=== PATIENT | female | born 1950 | race Caucasian/White ===

== ENCOUNTER → 2018-06-29 16:23 | Outpatient (REF) | payer MEDICARE, SELFPAY | LOC: LAB 16:23 | PROVIDERS: Visit Provider Internal Medicine | DX: N39.0 Urinary tract infection, site not specified (principal) | CPT/HCPCS: 87077; 87086; 87186 ==

== ENCOUNTER → 2018-09-02 11:24 | Outpatient (CLI) | payer MEDICARE, SELFPAY ==
[2018-09-02 11:47] LABS: Bacteria Urine None Seen; RBC Urine None Seen (0-5/HPF)
[2018-09-02 13:55] LABS: Appearance Urine UA CLEAR; Bilirubin Urine UA NEGATIVE (NEGATIVE); Color Urine UA YELLOW; Glucose Urine UA NEGATIVE (Negative); Ketones Urine UA NEGATIVE (NEGATIVE); Leukocyte Esterase Urine UA TRACE (NEGATIVE); Nitrite Urine UA NEGATIVE (Negative); Occult Blood Urine UA NEGATIVE (Negative); Protein Urine UA NEGATIVE (Negative); Specific Gravity Urine UA <=1.005 (1.000-1.035); Urobilinogen Urine UA 0.2 E.U./dL (0.2); pH Urine UA 6.5 (4.5-8.0)
[2018-09-02 14:46] LABS: Culture Indicated Urine Cult Not Indicated; Squamous Epithelial Cell Urine 0-1 /HPF (0-5/HPF); WBC Urine 0-1/HPF (0-5/HPF)
== END ==
PROVIDERS: PCP Internal Medicine; Visit Provider Internal Medicine
DX: R30.0 Dysuria (principal)
CPT/HCPCS: 81001

== ENCOUNTER → 2019-04-25 11:41 | Outpatient (CLI) | payer MEDICARE, SELFPAY ==
[2019-04-25 12:39] LABS: Add Manual Diff / Slide Review NO; Basophils Absolute Auto 0 /uL (0-100); Basophils Percent Auto 0.3 % (0-2); Eosinophils Absolute Auto 0 /uL (0-450); Eosinophils Percent Auto 1.1 % (2-4); Hematocrit 41.2 % (36-46); Hemoglobin 14.3 g/dL (12.0-16.0); Lymphocytes Absolute Auto 1400 /uL (1100-4500); Lymphocytes Percent Auto 31.9 % (25-40); Mean Corpuscular HGB Conc 34.8 % (30-36); Mean Corpuscular Hemoglobin 31.7 PG (26-34); Mean Corpuscular Volume 91.1 fL (80-100); Monocytes Absolute Auto 600 /uL (0-900); Monocytes Percent Auto 13.6 % (3-14); Neutrophils Absolute Auto 2300 /uL (1500-7000); Neutrophils Percent Auto 53.1 % (50-75); Platelet Count 231 X10^3/uL (150-400); Red Blood Cell Count 4.53 X10^6/uL (4.0-5.2); Red Cell Distribution Width 13.8 % (11.6-14.8); White Blood Cell Count 4.3 X10^3/uL (4.5-11.0)
[2019-04-25 12:55] LABS: Erythrocyte Sedimentation Rate 5 MM/HR (0-20)
[2019-04-25 13:00] LABS: Alanine Aminotransferase 45 IU/L (<35); Albumin 4.6 g/dL (3.5-5.0); Albumin Globulin Ratio 1.9 (1.0-2.8); Alkaline Phosphatase 61 U/L (38-126); Aspartate Aminotransferase 48 IU/L (14-36); BUN Creatinine Ratio 26.7 (6-22); Bilirubin Total 0.5 mg/dL (0.2-1.3); Blood Urea Nitrogen 16 mg/dL (7-17); Calcium 9.7 mg/dL (8.4-10.2); Carbon Dioxide 29 mmol/L (22-32); Chloride 105 mmol/L (98-107); Estimated Glomerular Filt Rate > 60.0 mL/min (>60); Globulin 2.4 g/dL (1.7-4.1); Glucose 105 mg/dL (80-110); HEMOLYSIS < 15 (0-50); Potassium 4.8 mmol/L (3.4-5.1); Sodium 143 mmol/L (137-145)
[2019-04-25 13:03] LABS: C-Reactive Protein Quant < 0.5 mg/dL (<1.0)
[2019-04-30 07:55] LABS: ANA Screen, IFA NEGATIVE (NEGATIVE)
== END ==
PROVIDERS: PCP Internal Medicine; Visit Provider Internal Medicine
DX: R53.83 Other fatigue (principal); M62.81 Muscle weakness (generalized); M79.10 Myalgia, unspecified site
CPT/HCPCS: 36415; 80053; 84443; 85025; 85651; 86038; 86140

== ENCOUNTER → 2019-11-20 13:14 | Outpatient (CLI) | payer MEDICARE, SELFPAY ==
--- NOTE | 2019-11-20 | DI.RAD.S_ITS ---
PROCEDURE: XR LUMBAR SPINE 2-3V INDICATIONS: Low back pain TECHNIQUE: 3 views of the lumbar spine were acquired. COMPARISON: None. FINDINGS: Bones: No fracture. Multilevel degenerative endplate sclerosis and spurring. Diffuse facet arthropathy. Lumbar levoscoliosis. Posterior spinal fixation hardware with paraspinal rods pedicle screw. There is also interbody cage graft at L5-S1. Hardware appears intact. Expected postop alignment. Presumed posterior element stabilization device. Grade 1 retrolisthesis of L2 on L3, L3 on L4. Severe narrowing of the L2-L3 and L3-L4 disc spaces. Soft tissues: Overlying bowel gas pattern is normal. No suspicious soft tissue calcifications. IMPRESSION: Lumbar levoscoliosis and severe multilevel spondylosis, and facet arthropathy Postsurgical changes as above L5-S1. Dictated by: Fredy Flannery M.D. on 11/20/2019 at 16:48 Approved by: Fredy Flannery M.D. on 11/20/2019 at 16:50
--- NOTE | 2019-11-20 | DI.RAD.S_ITS ---
PROCEDURE: XR HIP W PEL IF DONE LT MIN 4V INDICATIONS: bilateral hip pain TECHNIQUE: AP pelvis with lateral view(s) of the 3 hip(s). COMPARISON: None. FINDINGS: Bones: No fractures or dislocations. Pelvic ring appears intact. No suspicious bony lesions. Lower lumbar spondylosis, and L5-S1 surgical fixation. Moderate bilateral osteoarthritis. Calcific densities projecting at the right greater trochanter Soft tissues: The visualized bowel gas pattern is normal. No suspicious soft tissue calcifications. IMPRESSION: Moderate bilateral hip osteoarthritis Lower lumbar spondylosis and postsurgical changes. Dictated by: Fredy Flannery M.D. on 11/20/2019 at 15:27 Approved by: Fredy Flannery M.D. on 11/20/2019 at 15:29
== END ==
PROVIDERS: PCP Internal Medicine; Referring Provider Internal Medicine; Visit Provider Internal Medicine
DX: M54.5 Low back pain (principal); M47.816 Spondylosis without myelopathy or radiculopathy, lumbar region; M25.551 Pain in right hip; M25.552 Pain in left hip; M16.0 Bilateral primary osteoarthritis of hip; M41.86 Other forms of scoliosis, lumbar region; Z78.0 Asymptomatic menopausal state; Z90.722 Acquired absence of ovaries, bilateral; Z85.3 Personal history of malignant neoplasm of breast; Z98.1 Arthrodesis status
CPT/HCPCS: 72100; 73522; 77080

== ENCOUNTER → 2020-05-15 11:58 | Outpatient (CLI) | payer MEDICARE, SELFPAY ==
[2020-05-15] MEDS: COVID-19 VACC #1, MRNA(MOD) 100 MCG/0.5 ML VIAL IM (12:14)
== END ==
PROVIDERS: PCP Internal Medicine; Visit Provider Internal Medicine
DX: Z23 Encounter for immunization (principal)
CPT/HCPCS: 0011A; 91301

== ENCOUNTER → 2020-06-12 12:00 | Outpatient (CLI) | payer MEDICARE, SELFPAY ==
[2020-06-12] MEDS: COVID-19 VACC #2, MRNA(MOD) 100 MCG/0.5 ML VIAL IM (12:11)
== END ==
PROVIDERS: PCP Internal Medicine; Visit Provider Internal Medicine
DX: Z23 Encounter for immunization (principal)
CPT/HCPCS: 0012A; 91301

== ENCOUNTER → 2020-06-25 08:00 | Outpatient (CLI) | payer OTHER, SELFPAY ==
[2020-06-25 09:32] LABS: Alanine Aminotransferase 36 IU/L (<35); Albumin 4.3 g/dL (3.5-5.0); Albumin Globulin Ratio 1.7 (1.0-2.8); Alkaline Phosphatase 81 U/L (38-126); Aspartate Aminotransferase 32 IU/L (14-36); BUN Creatinine Ratio 30.9 (6-22); Bilirubin Total 0.4 mg/dL (0.2-1.3); Blood Urea Nitrogen 17 mg/dL (7-17); Calcium 9.1 mg/dL (8.4-10.2); Carbon Dioxide 32 mmol/L (22-32); Chloride 104 mmol/L (98-107); Cholesterol 186 mg/dL (140-199); Estimated Glomerular Filt Rate > 60.0 mL/min (>60); Globulin 2.6 g/dL (1.7-4.1); Glucose 105 mg/dL (80-110); HDL Cholesterol 58 mg/dL (40-60); HEMOLYSIS < 15 (0-50); LDL Cholesterol Calculated 97 mg/dL (<100); Potassium 3.7 mmol/L (3.4-5.1); Sodium 139 mmol/L (137-145); Total Protein 6.9 g/dL (6.3-8.2); Triglycerides 154 mg/dL (35-150)
== END ==
PROVIDERS: PCP Internal Medicine; Referring Provider Internal Medicine; Visit Provider Internal Medicine
DX: E78.5 Hyperlipidemia, unspecified (principal); I10 Essential (primary) hypertension
CPT/HCPCS: 36415; 80053; 80061

== ENCOUNTER → 2020-09-08 10:04 | Outpatient (CLI) | payer OTHER, SELFPAY | PROVIDERS: PCP Internal Medicine; Referring Provider Internal Medicine; Visit Provider Internal Medicine | DX: M54.40 Lumbago with sciatica, unspecified side (principal) ==

== ENCOUNTER → 2020-09-21 12:18 | Outpatient (CLI) | payer OTHER, SELFPAY ==
--- NOTE | 2020-09-21 12:19 | DI.MRI.S_ITS ---
PROCEDURE: MR LUMBAR SPINE WO CON INDICATIONS: Low back pain TECHNIQUE: Noncontrast sagittal T1 spin echo and T2 fast echo, sagittal STIR, axial T1 and T2 fast spin echo through the lumbar spine. In cases with scoliosis, additional coronal T2 fast spin echo may be performed. COMPARISON: [facility], CR, XR LUMBAR SPINE 2-3V, 11/20/2019, 13:17. FINDINGS: Image quality: Excellent. Postsurgical changes of posterior fixation at L5-S1 by means of interbody device with left lateral pedicle screws and rods. There is also an interspinous fusion device. Mild levoscoliosis is similar. Grade 1 retrolisthesis of L2 on L3 and of L3 on L4, similar to the comparison radiographs. Vertebral body heights maintained. Mild marrow edema at the opposing L3-L4 endplates on the right. No significant marrow edema otherwise. There is no suspicious focal marrow signal abnormality. Abnormally low position of the conus, terminating at the mid to inferior L2 level. Normal appearance of the conus otherwise. Prevertebral and paraspinous soft tissues are within normal limits. Small left renal cyst. T12-L1: No spinal canal or neural foraminal stenosis. L1-L2: No spinal canal or neural foraminal stenosis. L2-L3: Diffuse disc bulge flattens the ventral thecal sac. Disc material abuts and may slightly displace the descending L3 nerve roots within both subarticular zones. Foraminal components of the disc bulge combine with facet hypertrophy to produce mild bilateral neural foraminal stenosis. Small facet effusions are present. L3-L4: Retrolisthesis of L3 on L4 combines with a circumferential disc bulge and a superimposed broad-based posterior disc protrusion to flatten and indent the ventral thecal sac. Buckling of the ligamentum flavum and bulky facet hypertrophy further contribute to overall severe spinal canal stenosis. There is near complete effacement of CSF within the thecal sac at this level, producing crowding of the traversing nerve roots with some laxity of the nerve roots above this level suggesting an element of compression/impingement. Foraminal components of the disc bulge contribute to mild bilateral neural foraminal narrowing in conjunction with facet hypertrophy. Small facet effusions are present. L4-L5: Severe spinal canal stenosis due to a broad-based posterior disc protrusion buckling of the ligamentum flavum, and facet hypertrophy. There is complete effacement of CSF and crowding of the traversing nerve roots with laxity of the nerve roots above this level. Foraminal components of the disc bulge combine with facet hypertrophy to produce mild bilateral neural foraminal narrowing. Moderate-sized facet effusions are present. L5-S1: Diffuse disc bulge and posterior osteophytic ridging flatten the ventral thecal sac with mild displacement of the descending S1 nerve roots. Mild bilateral neural foraminal narrowing. IMPRESSION: Severe spinal canal stenosis at L3-L4 and L4-L5. Additional milder degenerative changes at the remaining levels. Postsurgical changes of L4-L5 posterior fixation. Slightly low position of the conus. Dictated by: Jerzy Velez M.D. on 09/23/2020 at 9:55 Approved by: Jerzy Velez M.D. on 09/23/2020 at 10:13
== END ==
PROVIDERS: PCP Internal Medicine; Referring Provider Internal Medicine; Visit Provider Internal Medicine
DX: M54.40 Lumbago with sciatica, unspecified side (principal)
CPT/HCPCS: 72148

== ENCOUNTER → 2021-12-16 10:06 | Outpatient (CLI) | payer OTHER, SELFPAY ==
[2021-12-16 12:20] LABS: COVID19 -Nasal RAPID Negative (Negative)
== END ==
PROVIDERS: PCP Internal Medicine; Visit Provider Surgery
DX: Z20.822 Contact with and (suspected) exposure to COVID-19 (principal); Z01.812 Encounter for preprocedural laboratory examination
CPT/HCPCS: 87635; C9803

== ENCOUNTER 2021-12-17 10:07 | Day surgery (SDC) | payer OTHER, SELFPAY ==
--- NOTE | 2021-12-17 | PATH_ITS ---
[facility] Accession Number: [id number] . 01 Material submitted: . PART A: colon - HEPATIC FLEXURE COLON POLYPS X2 PART B: rectum - RECTAL POLYPS X2 . 01 Clinical history: . DX COLONOSCOPY . 01 Diagnosis: A. Hepatic Flexure, Polyps x2, Biopsies: Serrated lesion, favor sessile serrated adenoma in one of three fragments. Benign lymphoid aggregate, two fragments. Additional levels were examined. . B. Rectum, Polyps x2, Biopsies: Hyperplastic polyp, one fragment. Remaining fragments are vegetable material. MRV 12/23/2021 1452 Local . 01 Electronically signed: . Shireen Sifuentes MD, Pathologist NPI- [id number] . 01 Gross description: . Part A: HEPATIC FLEXURE COLON POLYPS X2: Received in formalin are 3 fragment(s) of [place], soft tissue measuring 0.8 x 0.2 x 0.1 cm to 0.2 x 0.1 x 0.1 cm submitted entirely in 1 cassette(s) Part B: RECTAL POLYPS X2: Received in formalin are multiple fragment(s) of [place], soft tissue measuring 2.7 x 1.0 x 0.1 cm in aggregate submitted entirely in 1 cassette(s) /CPE 12/18/2021 0658 Local . 01 Pathologist provided ICD-10: D12.3, K62.1 . 01 CPT . 684738, 090787 Specimen Comment: A courtesy copy of this report has been sent to [phone] Performed at: 01 [facility] [address] [place] [address] [address], [place], [place] [id number] MD Brock Green MD Phone: [phone]
[2021-12-17 10:30] VITALS: BP 146/86; PULSE 96; RESP 20; TEMP 36.9; O2SAT 99; BMI 25.7
[2021-12-17] MEDS: LACTATED RINGERS 1,000 ML 150 ML IV (10:39)
--- NOTE | 2021-12-17 12:00 | PM.HP.1 ---
History of Present Illness History of Present Illness Chief complaint: DX COLONOSCOPY Patient History Family & Social History Social History: household members spouse Tobacco & Substance use: Smoking Status Never smoker alcohol intake frequency a few times a month Substance Use Type does not use Meds Home Medications and Allergies Home Medications Medication Instructions Recorded Confirmed Type amlodipine 2.5 mg tablet 2.5 mg PO DAILY 10/26/19 12/17/21 History meloxicam 15 mg tablet 15 mg PO DAILY 10/26/19 12/17/21 History nortriptyline 50 mg capsule 50 mg PO DAILY 10/26/19 12/17/21 History Respironics DreamStation 03/26/21 03/26/21 History atorvastatin 40 mg tablet 40 mg PO DAILY 03/26/21 12/17/21 History gabapentin 300 mg capsule 300 mg PO .4 times daily 03/26/21 12/17/21 History lisinopril 30 mg tablet 40 mg PO DAILY 03/26/21 12/17/21 History metoprolol succinate 50 mg 50 mg PO DAILY 12/17/21 12/17/21 History tablet,extended release 24 hr Allergies Allergy/AdvReac Type Severity Reaction Status Date / Time Sulfa (Sulfonamide Allergy have Verified 03/26/21 09:42 Antibiotics) been told to avoid it since childhood morphine AdvReac Intermediate ITCHING Verified 12/17/21 10:27 Review of Systems Review of Systems Narrative: Negative Exam Vital Signs (past 8 hours): - 12/17/21 10:30 Temperature 98.5 F Pulse Rate 96 H Respiratory Rate 20 Blood Pressure 146/86 H Pulse Oximetry 99 Oxygen Delivery Method Room Air Oxygen Delivery Method Room Air Narrative Exam Narrative: Awake alert and oriented x3, pupils equal round reactive to light, oropharynx clear, heart regular rate and rhythm, lungs clear to auscultation bilaterally, abdomen nontender and nondistended, extremities without edema, no gross neurologic deficits noted Assessment & Plan Assessment & Plan narrative: Colon cancer screening for colonoscopy today Time Spent With Patient Critical Care time: I spent a total of [] minutes of critical care time on this patient's care today; this time is exclusive of procedural time.
--- NOTE | 2021-12-17 12:37 | PM.OP.COLON ---
Operative Date/Time/Diagnoses Date of procedure: 12/17/21 Procedure & Clinicians Study performed: Colonoscopy with snare polypectomy Indications: Colon cancer screening. Last colonoscopy was about 4 years ago. Personal history of colon polyps. Family history of colon cancer in a first-degree relative and second-degree relative. Procedure Notes Procedure in detail: Prior to the procedure, history and physical was performed, and patient medications and allergies were reviewed. Preprocedure nursing history and assessment was reviewed. Patient identification and proposed procedure were verified by the physician and nurse in the procedure room. The physical status of the patient was reassessed after the procedure. After informed consent was obtained including risks, benefits, and alternatives, the scope was passed under direct vision. Throughout the procedure, the patient's blood pressure, pulse, and oxygen saturations were monitored continuously. The colonoscope was introduced through the anus and advanced to the cecum as identified by the appendiceal orifice and ileocecal valve. The patient tolerated the procedure well. Bowel prep was deemed adequate to detect polyps greater than 5 mm. Perianal and digital rectal examinations were unremarkable. Retroflexion in the rectum was unrevealing. There was looping in the sigmoid colon. At the hepatic flexure, a 7 mm and 3 mm sessile polyp were removed using cold snare and were retrieved. At the rectum, a 4 mm and a 3 mm sessile polyp were removed using a cold snare and retrieved Impression: Four sessile polyps ranging in size from 3 mm to 7 mm removed from the rectum and hepatic flexure Looping in the sigmoid colon Complications: other (EBL minimal. No complications) Post-procedure Plan for aftercare: Follow-up pathology results Repeat colonoscopy at a date to be determined based on pathology results Resume home medications Resume previous diet Patient has a contact number available for emergencies. The signs and symptoms of potential delayed complications were discussed with the patient. Return to normal activities tomorrow. Written discharge instructions were provided to the patient. Discharge home with escort
[2021-12-17 12:40] VITALS: BP 109/75; PULSE 94; RESP 16; O2SAT 98
[2021-12-17 12:45] VITALS: BP 114/76; PULSE 96; RESP 14; O2SAT 100
[2021-12-17 12:51] VITALS: BP 164/94; PULSE 91; RESP 16; O2SAT 100
[2021-12-17 12:56] VITALS: BP 158/93; PULSE 88; RESP 13; O2SAT 99
[2021-12-17 13:01] VITALS: BP 144/88; PULSE 84; RESP 19; TEMP 36.4; O2SAT 99
== END 2021-12-17 13:10 | disposition home or self-care (01) ==
PROVIDERS: PCP Internal Medicine; Referring Provider Internal Medicine; Visit Provider Internal Medicine
PROC: 0DJD8ZZ Inspection of Lower Intestinal Tract, Via Natural or Artificial Opening Endoscopic (ICD-10-PCS; CPT 45378; principal; 2021-12-17 11:30)
DX: Z86.010 Personal history of colon polyps (principal); Z80.0 Family history of malignant neoplasm of digestive organs; Z12.11 Encounter for screening for malignant neoplasm of colon; D12.3 Benign neoplasm of transverse colon
CPT/HCPCS: 45385; J2704

== ENCOUNTER → 2022-04-15 09:12 | Outpatient (CLI) | payer OTHER, SELFPAY ==
--- NOTE | 2022-04-15 | DI.US.S_ITS ---
PROCEDURE: US CAROTID DOPPLER BI INDICATIONS: HYPERLIPIDEMIA TECHNIQUE: Color and pulse Doppler interrogation was performed of both carotid systems, with image documentation and velocity measurements. COMPARISON: None. FINDINGS: Stenosis calculations are based on SRU (Society of Radiologists in Ultrasound) criteria. Right side: Brachial blood pressure: 152/94 mm Hg. Common carotid artery peak systolic velocity: 63 cm/sec. Internal carotid artery peak systolic velocity: 58 cm/sec. Internal carotid artery end diastolic velocity: 22 cm/sec. External carotid artery peak systolic velocity: 86 cm/sec. ICA/CCA peak systolic ratio: 0.9 . Wang scale imaging description: Mild atheromatous plaque is present at the origin of the internal carotid artery. Percent internal carotid artery stenosis: Less than 50% stenosis. Vertebral artery: Flow direction is antegrade. Left side: Brachial blood pressure: 143/84 mm Hg. Common carotid artery peak systolic velocity: 66 cm/sec. Internal carotid artery peak systolic velocity: 62 cm/sec. Internal carotid artery end diastolic velocity: 26 cm/sec. External carotid artery peak systolic velocity: 67 cm/sec. ICA/CCA peak systolic ratio: 0.9 . Wang scale imaging description: Atheromatous plaque is present at the carotid bulb and the distal common carotid artery. Percent internal carotid artery stenosis: Less than 50% stenosis. Vertebral artery: Flow direction is antegrade. IMPRESSION: Less than 50% stenosis of the bilateral internal carotid arteries. Dictated by: Deandra Thompson M.D. on 04/15/2022 at 11:36 Approved by: Deandra Thompson M.D. on 04/15/2022 at 11:37
== END ==
PROVIDERS: PCP Internal Medicine; Referring Provider Internal Medicine; Visit Provider Internal Medicine
DX: I65.23 Occlusion and stenosis of bilateral carotid arteries (principal); E78.5 Hyperlipidemia, unspecified; Z13.820 Encounter for screening for osteoporosis; Z78.0 Asymptomatic menopausal state; Z82.49 Family history of ischemic heart disease and other diseases of the circulatory system; Z90.710 Acquired absence of both cervix and uterus
CPT/HCPCS: 77080; 93880

== ENCOUNTER 2022-05-07 19:17 | Emergency (ER) | payer MEDICARE, SELFPAY ==
[2022-05-07 19:27] VITALS: BP 141/94; PULSE 114; RESP 20; TEMP 36.9; O2SAT 98; BMI 27.1
--- NOTE | 2022-05-07 19:36 | DI.RAD.S_ITS ---
PROCEDURE: XR CHEST 1V INDICATIONS: chest pain TECHNIQUE: One view of the chest was acquired. COMPARISON: None. FINDINGS: Surgical changes and devices: Surgical clips are noted in the left axilla. Lungs and pleura: Lungs are clear. No pleural effusions or pneumothorax. Mediastinum: Aortic arch calcification is seen. Heart size is enlarged. Bones and chest wall: No suspicious bony lesions. Overlying soft tissues appear unremarkable. IMPRESSION: No acute cardiopulmonary pathology. Dictated by: Peter Diaz M.D. on 05/07/2022 at 20:14 Approved by: Peter Diaz M.D. on 05/07/2022 at 20:15
[2022-05-07 20:31] LABS: COVID-19 CEPHEID PCR (VTM/NP) POSITIVE (Negative)
[2022-05-07 20:32] VITALS: BP 160/85; PULSE 101; RESP 20; O2SAT 98
[2022-05-07 20:36] LABS: Add Manual Diff / Slide Review NO; Basophils Absolute Auto 0 /uL (0-100); Basophils Percent Auto 0.4 % (0-2); Eosinophils Absolute Auto 100 /uL (0-450); Eosinophils Percent Auto 1.1 % (2-4); Hematocrit 43.7 % (36-46); Hemoglobin 14.4 g/dL (12.0-16.0); Lymphocytes Absolute Auto 2300 /uL (1100-4500); Lymphocytes Percent Auto 38.2 % (25-40); Mean Corpuscular Volume 90.8 fL (80-100); Monocytes Absolute Auto 700 /uL (0-900); Monocytes Percent Auto 11.6 % (3-14); Neutrophils Absolute Auto 2900 /uL (1500-7000); Neutrophils Percent Auto 48.7 % (50-75); Platelet Count 228 X10^3/uL (150-400); Red Blood Cell Count 4.81 X10^6/uL (4.0-5.2); Red Cell Distribution Width 14.1 % (11.6-14.8); White Blood Cell Count 5.9 X10^3/uL (4.5-11.0)
[2022-05-07 20:41] LABS: Prothrombin Time 11.8 SECONDS (10.1-12.7)
[2022-05-07 20:43] LABS: PTT Partial Thromboplastin Tim 29 SECONDS (26-36)
[2022-05-07 20:54] LABS: Alanine Aminotransferase 40 IU/L (<35); Alkaline Phosphatase 108 U/L (38-126); Aspartate Aminotransferase 35 IU/L (14-36); BUN Creatinine Ratio 25.9 (6-22); Bilirubin Total 0.5 mg/dL (0.2-1.3); Blood Urea Nitrogen 14 mg/dL (7-17); Calcium 9.1 mg/dL (8.4-10.2); Carbon Dioxide 29 mmol/L (22-32); Chloride 103 mmol/L (98-107); Creatine Kinase 61 U/L (30-135); Estimated Glomerular Filt Rate > 60 mL/min (>60); Glucose 121 mg/dL (80-110); Lipase 91 U/L (23-300); Magnesium 1.9 mg/dL (1.6-2.3); Potassium 3.7 mmol/L (3.4-5.1); Sodium 142 mmol/L (137-145); Total Protein 7.7 g/dL (6.3-8.2)
[2022-05-07 21:05] LABS: Troponin I 0.013 ng/mL (0.01-0.034)
[2022-05-07] MEDS: ASPIRIN 81 MG CHEW TAB 324 MG PO (21:05)
[2022-05-07 21:21] VITALS: PULSE 99; RESP 21
[2022-05-07 21:23] VITALS: BP 164/84; PULSE 97; RESP 20; O2SAT 97
[2022-05-07 21:30] VITALS: BP 164/72; PULSE 96; RESP 22; O2SAT 97
--- NOTE | 2022-05-07 21:54 | ED.ARRPALP ---
HPI - Arrhythmia/Palpitations General Chief Complaint: Arrhythmia/Palpitations Stated Complaint: High BP 180/117, Racing pulse, Headache Time Seen by Provider: 05/07/22 21:31 Source: patient Mode of arrival: Ambulatory Limitations: no limitations History of Present Illness HPI narrative: Patient is a 72-year-old female. Earlier this month she took a home test and she was positive for COVID. She states that her symptoms have improved somewhat but never completely went away. She took another test several days later and was negative and now today she took another home tested it was positive. She states that her blood pressures been elevated. She felt earlier today like her heart was racing. Also describing a headache. She is taking all of her blood pressure medications. No fevers. Her symptoms have improved with the time of my evaluation. Related Data Home Medications Medication Instructions Recorded Confirmed amlodipine 2.5 mg tablet 2.5 mg PO DAILY 10/26/19 01/06/22 meloxicam 15 mg tablet 15 mg PO DAILY 10/26/19 01/06/22 nortriptyline 50 mg capsule 50 mg PO DAILY 10/26/19 01/06/22 Respironics DreamStation 03/26/21 01/06/22 atorvastatin 40 mg tablet 40 mg PO DAILY 03/26/21 01/06/22 gabapentin 300 mg capsule 300 mg PO .4 times daily 03/26/21 01/06/22 lisinopril 30 mg tablet 40 mg PO DAILY 03/26/21 01/06/22 metoprolol succinate 50 mg 50 mg PO DAILY 12/17/21 01/06/22 tablet,extended release 24 hr Allergies Allergy/AdvReac Type Severity Reaction Status Date / Time Sulfa (Sulfonamide Allergy have Verified 01/06/22 11:41 Antibiotics) been told to avoid it since childhood morphine AdvReac Intermediate ITCHING Verified 01/06/22 11:41 Review of Systems Constitutional Constitutional: Reports system reviewed and no additional complaints, except as documented Cardiovascular Cardiovascular: Reports system reviewed and no additional complaints, except as documented Respiratory Respiratory: Reports system reviewed and no additional complaints, except as documented Gastrointestinal Gastrointestinal: Reports system reviewed and no additional complaints, except as documented Hematologic/Lymphatic On Anticoagulants: No Patient History Social History household members: spouse Smoking Status: Never smoker Smoking Status: Never smoker alcohol intake frequency: a few times a month Substance Use Type: does not use Exam Initial Vital Signs Initial Vital Signs: Vital Signs Temperature 98.4 F 05/07/22 19:27 Pulse Rate 114 H 05/07/22 19:27 Respiratory Rate 20 05/07/22 19:27 Blood Pressure 141/94 H 05/07/22 19:27 Pulse Oximetry 98 05/07/22 19:27 Oxygen Delivery Method 05/07/22 19:27 Const General: cooperative, healthy appearing and No ill appearing HENMT Head: normal to inspection Resp Effort & Inspection: normal respiratory effort Auscultation: clear to auscultation bilaterally Cardio Rate: regular rate Rhythm: regular rhythm Skin General: no rashes or lesions noted Neuro General: patient alert, patient awake and moves all extremities Extrem General: normal to inspection and capillary refill normal Course Orders Ordered: ED Orders 05/07/22 19:36 XR chest 1V Stat EKG-12 Lead Stat 05/07/22 20:25 Complete Blood Count AUTO DIFF Stat Comprehensive Metabolic Panel Stat Lipase Stat Magnesium Stat Partial Thromboplastin Time Stat Prothrombin Time INR Stat Troponin & CK Cardiac Panel Stat Discontinued Medications Aspirin (Aspirin 81 Mg Chew Tab) 324 mg PO NOW ONE Stop: 05/07/22 19:37 Last Admin: 05/07/22 21:05 Dose: 324 mg Documented By: KURTIS Vital Signs Vital signs: Vital Signs - 8 hr 05/07/22 20:32 05/07/22 21:21 05/07/22 21:23 Pulse Rate 101 H 99 H 97 H Respiratory Rate 20 21 20 Blood Pressure 160/85 H Pulse Oximetry 98 97 Oxygen Delivery Method Room Air 05/07/22 21:23 05/07/22 21:30 05/07/22 21:30 Pulse Rate 96 H Respiratory Rate 22 Blood Pressure 164/84 H 164/72 H Pulse Oximetry 97 Oxygen Delivery Method 05/07/22 22:00 05/07/22 22:00 Pulse Rate 98 H Respiratory Rate Blood Pressure 160/77 H Pulse Oximetry 95 Oxygen Delivery Method MDM - Arrhythmia/Palpitations Differential Diagnosis Differential diagnosis: Likely palpitations, anxiety, sinus tachycardia, artial fibrillation, artial flutter and ventricular tachycardia Condition is:: Resolved Chronic Condition is having:: Mild excerbation Condition is at treatment goal?: Yes Discussed with:: Patient and Lab Data Attestation: I reviewed the patient's lab results. Result diagrams: 05/07/22 20:25 05/07/22 20:25 Labs: Lab Results 05/07/22 05/07/22 05/07/22 Range/Units 19:36 20:25 20:25 WBC 5.9 (4.5-11.0) X10^3/uL RBC 4.81 (4.0-5.2) X10^6/uL Hgb 14.4 (12.0-16.0) g/dL Hct 43.7 (36-46) % MCV 90.8 (80-100) fL MCH 30.0 (26-34) PG MCHC 33.0 (30-36) % RDW 14.1 (11.6-14.8) % Plt Count 228 (150-400) X10^3/uL Neut % (Auto) 48.7 L (50-75) % Lymph % (Auto) 38.2 (25-40) % Jackson % (Auto) 11.6 (3-14) % Eos % (Auto) 1.1 L (2-4) % Baso % (Auto) 0.4 (0-2) % Neut # (Auto) 2900 (7440-0598) /uL Lymph # (Auto) 2300 (9071-8378) /uL Jackson # (Auto) 700 (0-900) /uL Eos # (Auto) 100 (0-450) /uL Baso # (Auto) 0 (0-100) /uL PT 11.8 (10.1-12.7) SECONDS INR 1.0 (0.9-1.3) APTT 29 (26-36) SECONDS Sodium (137-145) mmol/L Potassium (3.4-5.1) mmol/L Chloride (98-107) mmol/L Carbon Dioxide (22-32) mmol/L BUN (7-17) mg/dL Creatinine (0.52-1.04) mg/dL Estimated GFR (>60) mL/min BUN/Creatinine Ratio (6-22) Glucose (80-110) mg/dL Calcium (8.4-10.2) mg/dL Magnesium (1.6-2.3) mg/dL Total Bilirubin (0.2-1.3) mg/dL AST (14-36) IU/L ALT (<35) IU/L Alkaline Phosphatase (38-126) U/L Total Creatine Kinase (30-135) U/L CK-MB (CK-2) CK-MB (CK-2) Rel Index Troponin I (0.01-0.034) ng/mL Total Protein (6.3-8.2) g/dL Lipase (23-300) U/L SARS-CoV-2 (PCR) Positive H (Negative) 05/07/22 Range/Units 20:25 WBC (4.5-11.0) X10^3/uL RBC (4.0-5.2) X10^6/uL Hgb (12.0-16.0) g/dL Hct (36-46) % MCV (80-100) fL MCH (26-34) PG MCHC (30-36) % RDW (11.6-14.8) % Plt Count (150-400) X10^3/uL Neut % (Auto) (50-75) % Lymph % (Auto) (25-40) % Jackson % (Auto) (3-14) % Eos % (Auto) (2-4) % Baso % (Auto) (0-2) % Neut # (Auto) (9678-0918) /uL Lymph # (Auto) (8235-5928) /uL Jackson # (Auto) (0-900) /uL Eos # (Auto) (0-450) /uL Baso # (Auto) (0-100) /uL PT (10.1-12.7) SECONDS INR (0.9-1.3) APTT (26-36) SECONDS Sodium 142 (137-145) mmol/L Potassium 3.7 (3.4-5.1) mmol/L Chloride 103 (98-107) mmol/L Carbon Dioxide 29 (22-32) mmol/L BUN 14 (7-17) mg/dL Creatinine 0.54 (0.52-1.04) mg/dL Estimated GFR > 60 (>60) mL/min BUN/Creatinine Ratio 25.9 H (6-22) Glucose 121 H (80-110) mg/dL Calcium 9.1 (8.4-10.2) mg/dL Magnesium 1.9 (1.6-2.3) mg/dL Total Bilirubin 0.5 (0.2-1.3) mg/dL AST 35 (14-36) IU/L ALT 40 H (<35) IU/L Alkaline Phosphatase 108 (38-126) U/L Total Creatine Kinase 61 (30-135) U/L CK-MB (CK-2) TNP CK-MB (CK-2) Rel Index TNP Troponin I 0.013 (0.01-0.034) ng/mL Total Protein 7.7 (6.3-8.2) g/dL Lipase 91 (23-300) U/L SARS-CoV-2 (PCR) (Negative) Imaging Data Chest x-ray: Attestation: I personally reviewed and interpreted this imaging study as follows: My Impression: No acute pathology Radiologist's Impresson: [address] [address] XRay Report Signed Patient: Krys Landaverde MR#: [id number] : 1950 Acct:[id number] Age/Sex: 72 / F Date of Service: 05/07/22 Loc: ED Accession Number: [id number] ?? Procedure: XR chest 1V Ordering Provider: Bety Oseguera D.O. PROCEDURE:? XR CHEST 1V ? INDICATIONS:? chest pain ? TECHNIQUE:? One view of the chest was acquired.? ? COMPARISON:? None. ? FINDINGS:? ? Surgical changes and devices:? Surgical clips are noted in the left axilla. ? Lungs and pleura:? Lungs are clear.? No pleural effusions or pneumothorax.? ? Mediastinum:? Aortic arch calcification is seen.? Heart size is enlarged. ? Bones and chest wall:? No suspicious bony lesions.? Overlying soft tissues appear unremarkable.? ? IMPRESSION:? No acute cardiopulmonary pathology. ? ? Dictated by: Peter Diaz M.D. on 05/07/2022 at 20:14 ? ? Approved by: Peter Diaz M.D. on 05/07/2022 at 20:15?? ECG Data Attestation: I personally reviewed and interpreted this ECG as follows: Interpretation: Sinus tachycardia Ventricular rate 112 Left axis deviation Normal QRS Normal QTC No ST T wave changes MDM Narrative Medical decision making narrative: Troponins negative. EKG is unremarkable. Chest x-rays unremarkable. Was tachycardic on her EKG but it was sinus rhythm. She was not tachycardic at the time of my exam. She is not hypoxic. No indication for antibiotics. Low suspicion for ACS. We did discuss high blood pressure. She did take some wnly-eif-bgyciyl cough and cold preparations last evening. She did not think that it had Sudafed in it but she is unsure. This medication could potentially have been the cause of her palpitations and also her high blood pressure. No fevers. Will hold on further workup for now but the patient was given strict return precautions. She expressed understanding and agreement. Discharge Plan Departure Patient Disposition: Home Clinical Impression: Palpitations, Hypertension, COVID-19 Instructions: Arrhythmias, High Blood Pressure Activity Restrictions/Additional Instructions: Continue to take all of your medications has directed. I do recommend you contact your primary doctor for follow-up and follow all CDC guidelines with regard to quarantine because of your COVID-19 status. Return to the emergency department for any new symptoms. Prescriptions: No Action amlodipine 2.5 mg tablet 2.5 mg PO DAILY meloxicam 15 mg tablet 15 mg PO DAILY nortriptyline 50 mg capsule 50 mg PO DAILY gabapentin 300 mg capsule 300 mg PO .4 times daily lisinopril 30 mg tablet 40 mg PO DAILY metoprolol succinate 50 mg tablet extended release 24 hr 50 mg PO DAILY Label Comments: TAKE 1 TABLET BY MOUTH ONCE DAILY atorvastatin 40 mg tablet 40 mg PO DAILY (DME) Respironics DreamStation See Rx Instructions .Route .MEDSUPPLY Rx Instructions: CPAP Min: 8 Max: 14 DME: [facility] Referrals: Lauren Red MD [Primary Care Provider] - Stand Alone Forms: Patient Portal/API
[2022-05-07 22:00] VITALS: BP 160/77; PULSE 98; O2SAT 95
[2022-05-08 17:03] LABS: Albumin 4.6 g/dL (3.5-5.0); Albumin Globulin Ratio 1.5 (1.0-2.8); Globulin 3.1 g/dL (1.7-4.1); HEMOLYSIS 19 (0-50)
== END 2022-05-07 22:05 | disposition home or self-care (01) ==
PROVIDERS: Emergency Medicine; Emergency Provider Emergency Medicine; PCP Internal Medicine
DX: U07.1 COVID-19 (principal); R00.2 Palpitations; I10 Essential (primary) hypertension
CPT/HCPCS: 36415; 71045; 80053; 82550; 83690; 83735; 84484; 85025; 85610; 85730; 93005; 99284; U0003; U0005

== ENCOUNTER 2023-08-21 15:13 | Emergency (ER) | payer MEDICARE, SELFPAY ==
[2023-08-21] VITALS (16 sets, daily range): BP systolic 149–186; BP diastolic 67–83; PULSE 63–78; RESP 5–30; TEMP 36.6; O2SAT 92–98; BMI 27.4
--- NOTE | 2023-08-21 15:31 | DI.MRI.S_ITS ---
PROCEDURE: MR HEAD/BRAIN WO CON INDICATIONS: possible stroke yesterday TECHNIQUE: Non-contrast axial T1 spin echo, axial T2 fast spin echo, sagittal and axial FLAIR, coronal T2 fast spin echo, axial gradient echo, axial diffusion and ADC through the brain. COMPARISON: [facility], MR, MR CERVICAL SPINE WO/W CON, 08/21/2023, 15:47. [facility], MR, MR THORACIC SPINE WO/W CON, 08/21/2023, 15:47. FINDINGS: Image quality: This examination is limited by involuntary motion artifact. CSF spaces: Ventricles appear symmetric in size and shape. Basal cisterns are patent. No extra-axial fluid collections. Brain: No intracranial bleeds or mass effects. There is cerebral volume loss for age. There are periventricular and deep white matter chronic small vessel ischemic changes. Brainstem appears normal. Diffusion-weighted images show no acute infarct. No chronic ischemic insults. Normal intravascular flow voids are present. Skull and face: Calvarial bone marrow is normal in signal. Orbits are normal. Sinuses: Sinuses and mastoids are clear. IMPRESSION: No findings of acute or subacute infarction can be seen. No masses or abnormal enhancement can be seen. Note is made of age-appropriate brain parenchymal volume loss and chronic small vessel ischemic changes. Dictated by: Cuba Renner M.D. on 08/21/2023 at 16:29 Approved by: Cuba Renner M.D. on 08/21/2023 at 16:31
--- NOTE | 2023-08-21 15:31 | DI.MRI.S_ITS ---
PROCEDURE: MR LUMBAR SPINE WO/W CON INDICATIONS: post surgery fever leaking TECHNIQUE: Noncontrast sagittal T1 spin echo and T2 fast spin echo, sagittal STIR, axial T1 and T2 fast spin echo through the lumbar spine. In cases with scoliosis, additional coronal T2 fast spin echo may be performed. After the administration of contrast, sagittal and axial T1 spin echo with fat saturation through the lumbar spine. COMPARISON: [facility], MR, MR LUMBAR SPINE WO CON, 09/21/2020, 12:29. [facility], MR, MR CERVICAL SPINE WO/W CON, 08/21/2023, 15:47. [facility], MR, MR THORACIC SPINE WO/W CON, 08/21/2023, 15:47. [facility], MR, MR HEAD/BRAIN WO CON, 08/21/2023, 15:47. FINDINGS: Image quality: Excellent. Alignment and curvature: There is mild retrolisthesis seen at L2-L3 and L3-L4. Mild anterolisthesis is seen at L4-L5. Mild anterolisthesis is seen at L5-S1. Marrow: Marrow is of normal overall signal. No acute vertebral body compression fractures. No suspicious marrow enhancement. Spinal cord: Conus medullaris terminates at the L1 level. Visualized spinal cord demonstrates normal signal, without suspicious enhancement. Paraspinous soft tissues: Postoperative changes can be seen within the posterior paraspinous soft tissues, with areas of fluid seen, with rim enhancement. A portion of this fluid encroaches upon the thecal sac at the L3-L4 level, which is best demonstrated on series 10, image 10. There has been revision of the postoperative hardware, with a left-sided screw seen at L5, with removal portions of the previously seen metallic hardware posteriorly. There is an L5-S1 disc spacer. The hardware itself is not well seen by MRI. T12-L1: Normal appearance. L1-L2: Normal appearance. L2-L3: Mild loss of disc height is seen. Loss of disc signal is seen. Mild disc bulge is seen, with a mild central disc osteophyte protrusion. Mild facet joint hypertrophy is seen. Moderate bilateral neural foraminal narrowing is seen. Mild central canal narrowing is seen. When comparison is made with the prior images, these findings are similar. L3-L4: The disc height is well-preserved. Loss of disc signal is seen at this level. Reactive marrow endplate changes are seen, which are hyperintense on T1-weighted and T2-weighted imaging and most consistent with fatty metaplasia (Modic type II changes). Moderate generalized disc bulge is seen. Moderate facet joint hypertrophy is seen. There is at least moderate bilateral neural foraminal narrowing seen. There is a degree of compression seen upon the exiting nerve roots. Moderate to severe central canal narrowing is seen at this level. The degree of central canal narrowing is mildly progressed compared to the prior. L4-L5: The disc height is well-preserved. Loss of disc signal is seen at this level. Moderate generalized disc bulge is seen. Moderate facet joint hypertrophy is seen. Interval postoperative change is seen, with left hemilaminectomy. There is at least moderate bilateral neural foraminal narrowing seen, left worse than right. At least moderate central canal narrowing is seen at this level. The degree of central canal narrowing is improved compared to the preoperative MRI. L5-S1: Mild generalized disc bulge is seen. At least moderate facet hypertrophy is seen. There is moderate left-sided and mild right-sided neural foraminal narrowing. Mild central canal narrowing is seen. When comparison is made with the prior images, these findings are similar. IMPRESSION: Interval postoperative change, with revision of the hardware posteriorly. There has also been left hemilaminectomy at the L4-L5 level. Within the postoperative bed, there is abnormal fluid seen, with rim enhancement. While a postoperative hematoma/seroma is suspected, differential diagnosis also includes soft tissue abscess. There is moderate to severe central canal narrowing seen at the L3-L4 level, with mass effect caused from the posterior postoperative fluid. This is worse than on the prior MRI. The degree of central canal narrowing at the L4-L5 level is improved compared to the prior. Dictated by: Cuba Renner M.D. on 08/21/2023 at 16:54 Approved by: Cuba Renner M.D. on 08/21/2023 at 17:01
--- NOTE | 2023-08-21 15:31 | DI.MRI.S_ITS ---
PROCEDURE: MR THORACIC SPINE WO/W CON INDICATIONS: post surgery fever TECHNIQUE: Noncontrast sagittal T1 spin echo and T2 fast spin echo, sagittal STIR, axial T1 and T2 fast spin echo through the thoracic spine. After the administration of contrast, axial and sagittal T1 spin echo with fat saturation through the thoracic spine. COMPARISON: [facility], MR, MR CERVICAL SPINE WO/W CON, 08/21/2023, 15:47. [facility], MR, MR LUMBAR SPINE WO/W CON, 08/21/2023, 15:47. [facility], MR, MR HEAD/BRAIN WO CON, 08/21/2023, 15:47. FINDINGS: Image quality: Excellent. Alignment and curvature: Accentuated thoracic kyphosis is seen. No focal AP alignment abnormality is seen. Marrow: Marrow is of normal overall signal. No acute vertebral body compression fractures. Spinal cord: Visualized spinal cord is of normal signal and size, without abnormal enhancement. Paraspinous soft tissues: No paravertebral masses or abnormal enhancement. Miscellaneous: Lower cervical spine fixation hardware can be seen. No significant thoracic disc abnormality can be seen. No significant neural foraminal or central canal narrowing can be seen. IMPRESSION: Thoracic spine MRI within normal limits, without abnormal enhancement or other findings infection. Dictated by: Cuba Renner M.D. on 08/21/2023 at 16:36 Approved by: Cuba Renner M.D. on 08/21/2023 at 16:38
--- NOTE | 2023-08-21 15:34 | DI.MRI.S_ITS ---
PROCEDURE: MR CERVICAL SPINE WO/W CON INDICATIONS: post surgery TECHNIQUE: Noncontrast sagittal T1 spin echo and T2 fast spin echo, sagittal STIR, foraminal oblique sagittal T2 fast spin echo, axial gradient echo or T2 fast spin echo through the cervical spine. After the administration of contrast, axial and sagittal T1 spin echo with fat saturation through the cervical spine. COMPARISON: [facility], MR, MR THORACIC SPINE WO/W CON, 08/21/2023, 15:47. [facility], MR, MR HEAD/BRAIN WO CON, 08/21/2023, 15:47. FINDINGS: Image quality: There is artifact associated with the metallic hardware. This examination is limited by involuntary motion artifact. Alignment and curvature: There is minimal anterolisthesis seen at C7-T1 Marrow: Marrow is normal in overall signal, without suspicious enhancement. Spinal cord: Visualized spinal cord has normal size and signal. No cerebellar tonsillar herniation. No abnormal intramedullary enhancement. Paraspinous soft tissues: No paravertebral masses or suspicious enhancement. C2-3: Normal appearance. C3-4: Moderate loss of disc height is seen. Loss of disc signal is seen. Mild to moderate disc osteophyte complex is seen. At least moderate facet hypertrophy is seen. There is moderate to severe left-sided and at least moderate right-sided neural foraminal narrowing. Moderate central canal narrowing is seen. Minimal mass effect can be seen upon the ventral spinal cord. C4-5: Moderate loss of disc height is seen. Loss of disc signal is seen. Moderate generalized disc osteophyte complex is seen. There is moderate right-sided and at least moderate left-sided facet hypertrophy. There is moderate to severe left-sided and at least moderate right-sided neural foraminal narrowing. Moderate central canal narrowing is seen. Minimal mass effect is seen upon the ventral spinal cord. C5-6: Postoperative change is seen anteriorly, with an anterior fusion plate and a disc spacer. [id number] disc osteophyte complex is seen, which is eccentric to the right. Moderate facet joint hypertrophy is seen. There is at least moderate right-sided and moderate left-sided neural foraminal narrowing. No significant central canal narrowing is seen. C6-7: At least moderate loss of disc height and disc signal can be seen. At least moderate disc osteophyte complex is seen, which is eccentric to the right. At least moderate facet hypertrophy is seen. There is moderate to severe right-sided and at least moderate left-sided neural foraminal narrowing. Mild central canal narrowing is seen. C7-T1: The disc height is well-preserved. Loss of disc signal is seen at this level. At least moderate facet hypertrophy is seen. There is mild to moderate left-sided and no significant right-sided neural foraminal narrowing. No significant central canal narrowing is seen. IMPRESSION: Anterior fixation hardware seen at C5-C6, without sujatha complication seen. No abnormal enhancement is seen. Multiple levels of underlying degenerative change can be seen. Dictated by: Cuba Renner M.D. on 08/21/2023 at 16:32 Approved by: Cuba Renner M.D. on 08/21/2023 at 16:36
[2023-08-21] MEDS: LORazepam 2 MG/ML INJ 0.5 MG IV (15:51)
[2023-08-21 16:01] LABS: Add Manual Diff / Slide Review NO; Basophils Absolute Auto 0 /uL (0-100); Basophils Percent Auto 0.3 % (0-2); Eosinophils Absolute Auto 200 /uL (0-450); Eosinophils Percent Auto 2.2 % (2-4); Lymphocytes Absolute Auto 1600 /uL (1100-4500); Lymphocytes Percent Auto 16.6 % (25-40); Mean Corpuscular HGB Conc 34.2 % (30-36); Mean Corpuscular Hemoglobin 30.8 PG (26-34); Mean Corpuscular Volume 90.1 fL (80-100); Monocytes Absolute Auto 1000 /uL (0-900); Monocytes Percent Auto 10.4 % (3-14); Neutrophils Absolute Auto 7000 /uL (1500-7000); Neutrophils Percent Auto 70.5 % (50-75); Platelet Count 175 X10^3/uL (150-400); Red Blood Cell Count 4.22 X10^6/uL (4.0-5.2); Red Cell Distribution Width 14.5 % (11.6-14.8); White Blood Cell Count 9.9 X10^3/uL (4.5-11.0)
[2023-08-21 16:17] LABS: Alanine Aminotransferase 26 IU/L (<35); Albumin 4.6 g/dL (3.5-5.0); Albumin Globulin Ratio 1.8 (1.0-2.8); Alkaline Phosphatase 78 U/L (38-126); Aspartate Aminotransferase 25 IU/L (14-36); BUN Creatinine Ratio 24.1 (6-22); Bilirubin Total 0.5 mg/dL (0.2-1.3); Blood Urea Nitrogen 14 mg/dL (7-17); C-Reactive Protein Quant < 0.5 mg/dL (<1.0); Calcium 8.8 mg/dL (8.4-10.2); Carbon Dioxide 30 mmol/L (22-32); Chloride 104 mmol/L (98-107); Creatine Kinase 75 U/L (30-135); Estimated Glomerular Filt Rate > 60 mL/min (>60); Globulin 2.6 g/dL (1.7-4.1); Glucose 89 mg/dL (80-110); HEMOLYSIS < 15 (0-50); Lipase 78 U/L (23-300); Potassium 3.6 mmol/L (3.4-5.1); Sodium 138 mmol/L (137-145); Total Protein 7.2 g/dL (6.3-8.2)
[2023-08-21 16:25] LABS: Erythrocyte Sedimentation Rate 9 MM/HR (0-20)
[2023-08-21 16:27] LABS: Troponin I < 0.012 ng/mL (0.01-0.034)
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
[2023-08-21] MEDS: ASPIRIN 81 MG CHEW TAB 324 MG PO (18:36)
--- NOTE | 2023-08-21 18:43 | PC.NURSE ---
at 1830 pushed images and faxed facesheet to [facility]. Dr. Oseguera asks for Dr. Aquilino Hooker with [facility]. Spoke to Shira in the transfer center. [facility] will call back with Spine provider.
[2023-08-21] MEDS: BENZONATATE 100 MG CAPSULE PO (20:53)
[2023-08-21] MEDS: GABAPENTIN 300 MG CAPSULE PO (20:53)
[2023-08-22] VITALS (33 sets, daily range): BP systolic 120–177; BP diastolic 57–86; PULSE 65–82; RESP 16–35; TEMP 36.6–37.7; O2SAT 90–98
--- NOTE | 2023-08-22 03:43 | PM.HP.1 ---
History of Present Illness History of Present Illness Date Patient Seen: 08/21/23 Time Patient Seen: 22:00 Chief complaint: Sent from [facility]- spinal fluid leakage concerns Narrative: The pt comes to the ER tonight with c/o slurred speech and balance problems that last approximately 1-2 hours the day before. The pt has a chronic foot drop that makes walking difficult thus it was difficult for the pt to notice any difference in ambulation. She did have a L4-5 fusion last month that she also started to notice drainage from the base of the lumbar area a few days ago. There has been no SALCIDO, neck stiffness, fevers, chills and weakness in the legs outside of the brief episode of weakness listed above. [facility] Social History household members: spouse Smoking Status: Never smoker Meds Home Medications and Allergies Home Medications Medication Instructions Recorded Confirmed Type amlodipine 2.5 mg tablet 2.5 mg PO DAILY 10/26/19 06/03/22 History meloxicam 15 mg tablet 15 mg PO DAILY 10/26/19 06/03/22 History nortriptyline 50 mg capsule 50 mg PO DAILY 10/26/19 06/03/22 History Respironics DreamStation 03/26/21 08/21/23 History atorvastatin 40 mg tablet 40 mg PO DAILY 03/26/21 06/03/22 History gabapentin 300 mg capsule 300 mg PO .4 times daily 03/26/21 06/03/22 History lisinopril 30 mg tablet 40 mg PO DAILY 03/26/21 06/03/22 History metoprolol succinate 50 mg 50 mg PO DAILY 12/17/21 06/03/22 History tablet,extended release 24 hr albuterol sulfate 90 mcg/actuation 2 puff inhalation Q6H PRN 06/03/22 06/03/22 Rx aerosol inhaler shortness of breath or wheezing #6.7 grams benzonatate 100 mg capsule 100 mg PO BID PRN cough #20 caps 06/03/22 06/03/22 Rx inhalational spacing device #1 ea 06/03/22 08/21/23 Rx (Aerochamber MV spacer) Allergies Allergy/AdvReac Type Severity Reaction Status Date / Time Sulfa (Sulfonamide Allergy have Verified 06/03/22 17:49 Antibiotics) been told to avoid it since childhood morphine AdvReac Intermediate ITCHING Verified 06/03/22 17:49 Exam Vital Signs (past 8 hours): - 08/21/23 20:00 08/21/23 20:30 08/21/23 22:00 Pulse Rate 68 68 73 Respiratory Rate 22 20 19 Pulse Oximetry 93 96 Oxygen Delivery Method Room Air 08/21/23 22:30 08/21/23 23:00 Pulse Rate 73 71 Respiratory Rate 15 20 Pulse Oximetry Oxygen Delivery Method Oxygen Delivery Method Room Air Narrative Exam Narrative: The pt was not available for an examination but exam performed by the nursing staff reports no neurological deficits, lungs clear, heart regular rate and rhythm with intact strength in all four extremities. Objective Labs 08/21/23 15:46 08/21/23 15:46 Labs: Laboratory Results - last 24 hr 08/21/23 15:46 WBC 9.9 RBC 4.22 Hgb 13.0 Hct 38.0 MCV 90.1 MCH 30.8 MCHC 34.2 RDW 14.5 Plt Count 175 Neut % (Auto) 70.5 Lymph % (Auto) 16.6 L Kendall % (Auto) 10.4 Eos % (Auto) 2.2 Baso % (Auto) 0.3 Neut # (Auto) 7000 Lymph # (Auto) 1600 Kendall # (Auto) 1000 H Eos # (Auto) 200 Baso # (Auto) 0 ESR 9 Sodium 138 Potassium 3.6 Chloride 104 Carbon Dioxide 30 BUN 14 Creatinine 0.58 Estimated GFR > 60 BUN/Creatinine Ratio 24.1 H Glucose 89 Calcium 8.8 Total Bilirubin 0.5 AST 25 ALT 26 Alkaline Phosphatase 78 Total Creatine Kinase 75 Troponin I < 0.012 C-Reactive Protein < 0.5 Total Protein 7.2 Albumin 4.6 Globulin 2.6 Albumin/Globulin Ratio 1.8 Lipase 78 Assessment & Plan Assessment & Plan narrative: 1. TIA- I discussed the pt's condition, symptoms and imaging with the ER provider and agree with the decision for admission. Labs reviewed by myself and all were normal, imaging of MRI of the head, thoracic and lumbar spine reviewed showing no acute problems. PT/OT has been consulted. The ER provider has reached out to the neurosurgeon who performed the fusion but we have not heard back. Normal WBC and ESR favor no acute CSF leak but probably a seroma.
[2023-08-22] MEDS: PANTOPRAZOLE DR 20 MG TABLET PO (05:47)
[2023-08-22] MEDS: ACETAMINOPHEN 325 MG TABLET 650 MG PO (05:49)
[2023-08-22 06:19] LABS: Add Manual Diff / Slide Review NO; Basophils Absolute Auto 0 /uL (0-100); Basophils Percent Auto 0.3 % (0-2); Eosinophils Absolute Auto 100 /uL (0-450); Eosinophils Percent Auto 1.3 % (2-4); Hematocrit 39.4 % (36-46); Hemoglobin 13.2 g/dL (12.0-16.0); Lymphocytes Absolute Auto 1600 /uL (1100-4500); Lymphocytes Percent Auto 16.2 % (25-40); Mean Corpuscular HGB Conc 33.5 % (30-36); Mean Corpuscular Hemoglobin 30.3 PG (26-34); Mean Corpuscular Volume 90.6 fL (80-100); Monocytes Absolute Auto 1200 /uL (0-900); Monocytes Percent Auto 11.8 % (3-14); Neutrophils Absolute Auto 7000 /uL (1500-7000); Neutrophils Percent Auto 70.4 % (50-75); Platelet Count 167 X10^3/uL (150-400); Red Blood Cell Count 4.35 X10^6/uL (4.0-5.2); Red Cell Distribution Width 14.5 % (11.6-14.8); White Blood Cell Count 9.9 X10^3/uL (4.5-11.0)
[2023-08-22 06:33] LABS: BUN Creatinine Ratio 24.4 (6-22); Blood Urea Nitrogen 11 mg/dL (7-17); Calcium 8.5 mg/dL (8.4-10.2); Carbon Dioxide 26 mmol/L (22-32); Chloride 106 mmol/L (98-107); Cholesterol 165 mg/dL (140-199); Estimated Glomerular Filt Rate > 60 mL/min (>60); Glucose 130 mg/dL (80-110); HDL Cholesterol 63 mg/dL (40-60); HEMOLYSIS < 15 (0-50); LDL Cholesterol Calculated 70 mg/dL (<100); Sodium 137 mmol/L (137-145); Triglycerides 160 mg/dL (35-150)
--- NOTE | 2023-08-22 07:52 | DI.ECHO.S_ITS ---
[facility] : : [address] : : [place] : : [id number] : : Phone: [phone] Echocardiogram Report + + :Name: REBEL NEGRON Study Date: 08/22/2023 Height: 64 in : :[facility] ReadingLocation: Weight: 160 lb : : Gender: Female BSA: 1.8 m2 : :: 1950 Age: 73 yrs BP: 120/57 mmHg: :Reason For Study: TIA : :Ordering Physician: CLOTILDE, : :EDIL Alex Performed By: Roya Mitchell : :Referring: EDIL MABRY : + + Interpretation Summary The left ventricle is normal in size. The ejection fraction is estimated to be 60-65%. Left ventricular wall motion is normal. Diastolic parameters suggest a pseudonormalization pattern, consistent with probable elevated filling pressures. The right ventricle is normal in size and function. There is no Doppler evidence for an interatrial shunt. There is no significant valvular heart disease. The aortic root is normal size. Procedure: A two-dimensional transthoracic echocardiogram with color flow and Doppler was performed. The study quality was technically adequate. There is no prior echocardiogram noted for this patient. The patient was in sinus rhythm with heart rates between 62-67 bpm during the exam. Left Ventricle: The left ventricle is normal in size. There is mild concentric left ventricular hypertrophy. The ejection fraction is estimated to be 60-65%. Left ventricular wall motion is normal. Diastolic parameters suggest a pseudonormalization pattern, consistent with probable elevated filling pressures. Right Ventricle: The right ventricle is normal in size and function. Atria: The left atrial size is normal. Right atrial size is normal. There is no Doppler evidence for an interatrial shunt. Mitral Valve: The mitral valve is normal in structure and function. There is trace mitral regurgitation. Aortic Valve: The aortic valve is trileaflet. The aortic valve opens well. There is no aortic valve stenosis. No aortic regurgitation is present. Tricuspid Valve: The tricuspid valve is normal in structure and function. There is trace tricuspid regurgitation. Pulmonic Valve: The pulmonic valve leaflets are thin and pliable; valve motion is normal. There is trace pulmonic regurgitation. There is no significant valvular heart disease. Great Vessels: The aortic root is normal size. The ascending aorta is mildly enlarged. The IVC is of normal diameter and collapses greater than 50% with a sniff. This suggests a low right atrial pressure of 3 mm Hg. Pericardium/ Pleura There is no pericardial effusion. There is no pleural effusion. MMode/2D Measurements & Calculations LVIDd: 4.6 cm LVOT diam: 2.0 cm LVIDs: 3.2 cm Ao root diam: 3.7 cm FS: 29.5 % asc Aorta Diam: 3.6 cm IVSd: 1.1 cm Ao Arch Diam (Prox Trans): 3.2 cm LVPWd: 1.1 cm LV littlejohn. diameter/BSA (cm/m^2): 2.6 LV sys. diameter/BSA (cm/m^2): 1.8 LA A2 area: 22.4 cm2 RA long axis: 5.0 cm LA A4 area: 20.0 cm2 RA area: 15.5 cm2 LA length (vol): 5.7 cm RA vol: 40.9 ml LA vol: 66.4 ml RA : 23.0 ml/m2 LA vol index: 37.3 ml/m2 IVC diam: 1.4 cm RVD1 (basal): 3.0 cm RVD2 (mid): 2.6 cm TAPSE: 1.7 cm Doppler Measurements & Calculations Ao V2 max: 139.6 cm/sec LVOT Max Silver: 126.6 cm/sec Ao V2 mean: 95.6 cm/sec LV V1 max P.4 mmHg Ao max P.8 mmHg LV V1 VTI: 27.3 cm Ao mean P.2 mmHg STELLA(I,D): 2.8 cm2 Ao V2 VTI: 30.6 cm STELLA(V,D): 2.8 cm2 sev ratio: 0.89 STELLA indexed to BSA (cm^2/m^2): 1.6 MV E max silver: 112.8 cm/sec PA V2 max: 83.8 cm/sec MV A max silver: 99.2 cm/sec PA V2 mean: 62.8 cm/sec MV E/A: 1.1 PA mean P.7 mmHg Med Peak E' Silver: 5.5 cm/sec PA pr(Accel): 25.9 mmHg E/E' med: 20.6 Lat Peak E' Silver: 6.9 cm/sec E/E' lat: 16.4 E/e' average: 18.5 MV dec time: 0.22 sec SV(LVOT): 85.2 ml Reading Physician:10:54 AM
[2023-08-22] MEDS: MELOXICAM 7.5 MG TABLET 15 MG PO (08:12)
[2023-08-22] MEDS: METOPROLOL ER 50 MG TABLET PO (08:13)
[2023-08-22] MEDS: POTASSIUM CHLORIDE 20 MEQ TAB 40 MEQ PO ×2 (08:13→12:09)
[2023-08-22] MEDS: lisinopriL 20 MG TABLET 40 MG PO (08:14)
[2023-08-22] MEDS: ATORVASTATIN 20 MG TABLET 40 MG PO (08:14)
[2023-08-22] MEDS: AMLODIPINE 5 MG TABLET 2.5 MG PO (08:15)
[2023-08-22] MEDS: ASPIRIN EC 81 MG TABLET PO (08:27)
--- NOTE | 2023-08-22 10:04 | PC.NURSE ---
Drainage from surgical site. Bandage in place.
--- NOTE | 2023-08-22 10:41 | PT.IIE ---
Physical Therapy Inpatient Evaluation/Re-Eval M1 PT/OT-IP Prior Functional Status Start: 08/22/23 08:58 Freq: NEEDED Status: Active Protocol: Document 08/22/23 10:22 MB (Rec: 08/22/23 10:41 MB [id number]) Medical Review Prior Functional Status Medical History Reviewed Yes Diet/Fluid Consistency Regular Communication WNLs Mobility and Gait I, used left AFO Activities of Daily Living and IADL's I Social History Household Members spouse Living Arrangements House Number of Floors (Floors) One Floor Number of Stairs To Enter/Railing? 3 steps to enter Home Environment Standard Height Toilet,Tub/ Shower Home Equipment Front Wheel Walker,Four Wheel Walker,Straight Cane,Shower Seat without Backrest,Hand Held Shower Employment Status Retired M2 PT-IP Current Condition Start: 08/22/23 08:58 Freq: NEEDED Status: Active Protocol: Document 08/22/23 10:22 MB (Rec: 08/22/23 10:41 MB [id number]) Physical Therapy Current Condition Current Condition Evaluation Date 08/22/23 Treatment Diagnosis Possible spinal fluid leak M3 PT-IP Subjective Start: 08/22/23 08:58 Freq: NEEDED Status: Active Protocol: Document 08/22/23 10:22 MB (Rec: 08/22/23 10:41 MB [id number]) Subjective Physical Therapy Visit Type Type Initial Evaluation Visit Start Time 10:22 Visit Stop Time 10:32 Number of VALIDATION LEADER Visits 0 Physical Therapy Visit Comments Patient Comments Pt is pleasant and agreeable to PT M4 PT-IP Mobility and Gait Start: 08/22/23 08:58 Freq: NEEDED Status: Active Protocol: Document 08/22/23 10:22 MB (Rec: 08/22/23 10:41 MB [id number]) PT-Bed Mobility Assessment Supine to Sit Supine to Sit Independent Sit to Supine Sit to Supine Independent Scooting Scooting to Edge of Bed Independent Scooting Up and Down in Bed Independent PT-Transfer Assessment Sit to and From Stand Sit to and from Stand Independent,Standby Assistance Equipment Transfer Assistive Device Gait Belt Orthotic/Prosthetic Devices or Brace: No Transfers Transfer Destination Bed Transfer Technique Ambulation Transfer Ability Level of Assist Independent,Standby Assistance Comments Mobility Comments Pt gait trains without her left AFO in hospital socks d/t PT does not see standard socks Gait Assessment Gait Gait Assistance Required: Independent,Standby Assistance Distance (Feet) 100 Able to Maintain Weight Bearing Status Yes During Gait Assistive Devices Assistive Device Gait Belt Orthotic/Prosthetic Devices or Brace: No Gait Deviations General Gait Pattern Decreased Stride Length, Decreased Feet Clearance, Flexed Trunk,Step-to Gait Factors Limiting Gait Function Factors Limiting Gait Function Abnormal Tonal Influences, Decreased Strength,Limited Range of Motion,Poor Balance Comments Gait Comments Gait without wearing AFO is I and is altered d/t left foot drop: decreased left heel strike and toe push off, asymmetric step-length and decreased foot clearance PT-Balance Assessment Sitting Balance and Reactions Static Sitting Balance Ability Normal Dynamic Sitting Balance Ability Normal Standing Balance and Reactions Static Standing Balance Ability Good Dynamic Standing Balance Ability Good M5 PT-IP Objective Assessments Start: 08/22/23 08:58 Freq: NEEDED Status: Active Protocol: Document 08/22/23 10:22 MB (Rec: 08/22/23 10:41 MB [id number]) Orientation Orientation/Cognition Level of Alertness Alert Orientation Name,Birthday Language Function Ability No Deficits Noted Safety Awareness Decreased Safety Awareness Memory Description No Deficits Noted Comments Pt does state that they have no steps at home or maybe one to enter and her corrects her by stating they have three steps Gross Range of Motion Upper Extremity ROM Assessment Within Functional Limits Lower Extremity ROM Assessment Left Impaired Strength Upper Extremity Strength Assessment Within Functional Limits Lower Extremity Strength Assessment Left Impaired Comments Strength Comments Left ankle foot drop and decreased muscle mass lower leg M7 PT-IP Assessment and Plan Start: 08/22/23 08:58 Freq: NEEDED Status: Active Protocol: Document 08/22/23 10:22 MB (Rec: 08/22/23 10:41 MB [id number]) PT Summary Assessment and Plan Potential Rehabilitation Potential Good Status of Condition at Evaluation Evolving Summary Impairments ROM,Strength,Balance Progress Towards Goals Safe For Discharge Assessment Summary Pt is a 73 y/o female presenting with good bed mobility and transfers and she has basline left LE changes including foot drop and decreased muscle mass of her distal LLE. PT does not see standard socks and so AFO not donned and PT gait trains in hospital socks. Her gait is I, though impaired d/t left foot drop. Per patient, her functional mobility and strength are at baseline. No further acute PT needs. Frequency of Treatment Frequency Of Treatment Discharge Recommendations To Nursing Amount of Assist Needed Standby Assistance Discharge Recommendations PT Discharge Recommendations Home with Assistance Transportation Needs at Discharge Private Vehicle
[2023-08-22] MEDS: GABAPENTIN 300 MG CAPSULE PO (12:09)
--- NOTE | 2023-08-22 12:52 | P.DS_ITS ---
History of Present Illness History of Present Illness Chief complaint: Sent from [facility]- spinal fluid leakage concerns Narrative: The pt comes to the ER tonight with c/o slurred speech and balance problems that last approximately 1-2 hours the day before. The pt has a chronic foot drop that makes walking difficult thus it was difficult for the pt to notice any difference in ambulation. She did have a L4-5 fusion last month that she also started to notice drainage from the base of the lumbar area a few days ago. There has been no SALCIDO, neck stiffness, fevers, chills and weakness in the legs outside of the brief episode of weakness listed above. Discharge Providers Provider Date of admission: 08/21/23 20:06 Discharge Date: 08/22/23 Primary care physician: Lauren Red MD Consults: 08/21/23 20:10 Consult to Occupational Therapy Evaluate & Treat Comment: Physician Instructions: Evaluate and treat Consult to Physical Therapy Evaluate & Treat Comment: Physician Instructions: Evaluate and Treat Discharge provider: Omra Alfonso DO Summary Hospital Course Discharge Diagnosis: Possible TIA Hospital Course: Patient admitted for 2 hours of slurred speech which resolved. Brain MRI and echo were normal. Already on aspirin so plavix added for 3 weeks due to ABCD score fo 5. LDL 70 and already on statin. She will f/up with PCP for Zio patch. Exam Vital Signs (past 8 hours): - 08/22/23 05:00 08/22/23 05:30 08/22/23 06:00 Temperature Pulse Rate 72 82 77 Respiratory Rate 29 H 23 23 Blood Pressure Blood Pressure [Left Arm] Pulse Oximetry 91 91 92 Oxygen Delivery Method 08/22/23 06:30 08/22/23 07:00 08/22/23 07:42 Temperature Pulse Rate 76 73 80 Respiratory Rate 17 Blood Pressure Blood Pressure [Left Arm] Pulse Oximetry 91 93 Oxygen Delivery Method 08/22/23 07:43 08/22/23 07:43 08/22/23 07:49 Temperature 97.9 F Pulse Rate 76 76 Respiratory Rate 17 16 Blood Pressure 149/67 H Blood Pressure [Left Arm] 149/67 H Pulse Oximetry 92 98 Oxygen Delivery Method Room Air 08/22/23 08:00 08/22/23 08:30 08/22/23 08:31 Temperature Pulse Rate 76 78 78 Respiratory Rate 22 Blood Pressure Blood Pressure [Left Arm] Pulse Oximetry 94 93 93 Oxygen Delivery Method 08/22/23 08:31 08/22/23 08:32 08/22/23 09:00 Temperature Pulse Rate 77 72 Respiratory Rate 18 22 Blood Pressure 146/65 H 146/65 H Blood Pressure [Left Arm] Pulse Oximetry 94 94 Oxygen Delivery Method Room Air 08/22/23 09:18 08/22/23 09:18 08/22/23 09:19 Temperature Pulse Rate 74 71 Respiratory Rate Blood Pressure 120/57 L 120/57 L Blood Pressure [Left Arm] Pulse Oximetry 92 Oxygen Delivery Method 08/22/23 09:30 08/22/23 10:30 08/22/23 11:00 Temperature Pulse Rate 70 72 65 Respiratory Rate 17 16 26 H Blood Pressure Blood Pressure [Left Arm] Pulse Oximetry 95 92 91 Oxygen Delivery Method 08/22/23 11:10 08/22/23 11:10 08/22/23 11:30 Temperature Pulse Rate 70 66 Respiratory Rate 19 24 Blood Pressure 141/65 H Blood Pressure [Left Arm] Pulse Oximetry 91 94 Oxygen Delivery Method 08/22/23 12:00 08/22/23 12:01 08/22/23 12:01 Temperature Pulse Rate 76 77 Respiratory Rate Blood Pressure 177/86 H Blood Pressure [Left Arm] Pulse Oximetry 96 92 Oxygen Delivery Method 08/22/23 12:30 Temperature Pulse Rate 78 Respiratory Rate 22 Blood Pressure Blood Pressure [Left Arm] Pulse Oximetry 93 Oxygen Delivery Method Oxygen Delivery Method Room Air Narrative Exam Narrative: GEN: no acute distress HEENT: moist mucous membranes, PERRL NECK: trachea midline, no JVD CV: regular rate and rhythm, no murmurs PULM: clear bilaterally ABD: soft, nontender, nondistended, no organomegaly EXT: warm and well perfused with no edema NEURO: awake, alert, oriented, no focal deficits Objective Labs 08/22/23 06:01 08/22/23 06:01 Labs: Laboratory Results - last 24 hr 08/21/23 08/22/23 15:46 06:01 WBC 9.9 9.9 RBC 4.22 4.35 Hgb 13.0 13.2 Hct 38.0 39.4 MCV 90.1 90.6 MCH 30.8 30.3 MCHC 34.2 33.5 RDW 14.5 14.5 Plt Count 175 167 Neut % (Auto) 70.5 70.4 Lymph % (Auto) 16.6 L 16.2 L Hickman % (Auto) 10.4 11.8 Eos % (Auto) 2.2 1.3 L Baso % (Auto) 0.3 0.3 Neut # (Auto) 7000 7000 Lymph # (Auto) 1600 1600 Hickman # (Auto) 1000 H 1200 H Eos # (Auto) 200 100 Baso # (Auto) 0 0 ESR 9 Sodium 138 137 Potassium 3.6 3.0 L Chloride 104 106 Carbon Dioxide 30 26 BUN 14 11 Creatinine 0.58 0.45 L Estimated GFR > 60 > 60 BUN/Creatinine Ratio 24.1 H 24.4 H Glucose 89 130 H Calcium 8.8 8.5 Magnesium 2.0 Total Bilirubin 0.5 AST 25 ALT 26 Alkaline Phosphatase 78 Total Creatine Kinase 75 Troponin I < 0.012 C-Reactive Protein < 0.5 Total Protein 7.2 Albumin 4.6 Globulin 2.6 Albumin/Globulin Ratio 1.8 Triglycerides 160 H Cholesterol 165 LDL Cholesterol, Calc 70 HDL Cholesterol 63 H Lipase 78 PFSH Social History household members: spouse Smoking Status: Never smoker Discharge Plan Discharge Plan Patient Disposition: Home Provider Discharge Comment: You may have had a TIA. Your brain MRI and heart echo was normal. Your LDL was 70 which is at a good level. Please continue your aspirin and statin. I've added plavix for 3 weeks. Please see your PCP to possibly wear a Zio patch heart monitor to check for atrial fibrillation. Discharge orders & Medications Prescriptions: New clopidogrel [Plavix] 75 mg tablet 75 mg PO DAILY 21 Days Qty: 21 0RF Continued benzonatate 100 mg capsule 100 mg PO BID PRN (Reason: cough) Qty: 20 0RF albuterol sulfate 90 mcg/actuation HFA aerosol inhaler 2 puff inhalation Q6H PRN (Reason: shortness of breath or wheezing) Qty: 6.7 0RF (DME) Aerochamber MV Spacer See Rx Instructions .ROUTE .MEDSUPPLY Qty: 1 0RF Rx Instructions: As directed amlodipine 2.5 mg tablet 2.5 mg PO DAILY meloxicam 15 mg tablet 15 mg PO DAILY nortriptyline 50 mg capsule 50 mg PO DAILY gabapentin 300 mg capsule 300 mg PO .4 times daily lisinopril 30 mg tablet 40 mg PO DAILY metoprolol succinate 50 mg tablet extended release 24 hr 50 mg PO DAILY Patient Comments: TAKE 1 TABLET BY MOUTH ONCE DAILY atorvastatin 40 mg tablet 40 mg PO DAILY (DME) RespirToughSurgerys DreamStation See Rx Instructions .Route .MEDSUPPLY Rx Instructions: CPAP Min: 8 Max: 14 DME: [facility] Follow up/Referrals: Lauren Red MD [Primary Care Provider] - 2 Weeks Visit Report/Discharge Packet Stand Alone Forms: Patient Portal/API, Stroke Signs & Symptoms Discharge Data Primary Care Provider: Lauren Red Attending Provider: Pasquale Guzmán Admit Date/Time: 08/21/23 20:06
== END 2023-08-22 13:38 | disposition admitted as inpatient to this hospital (09) ==
LOC: ED 19:52 → AC 08-22 12:41
PROVIDERS: Internal Medicine; Student in an Organized Health Care Education/Training Program; Emergency Provider Emergency Medicine; PCP Internal Medicine; Referring Provider Emergency Medicine
DX: G45.9 Transient cerebral ischemic attack, unspecified (principal); Z79.899 Other long term (current) drug therapy
CPT/HCPCS: 36415; 70551; 72156; 72157; 72158; 80048; 80053; 80061; 81003; 82550; 83690; 83735; 84484; 85025; 85651; 86140; 87040; 87077; 93005; 93306; 96374; 97161; 99284; A9270; A9579; J2060

== ENCOUNTER 2023-08-27 14:37 | Emergency (ER) | payer MEDICARE, SELFPAY ==
[2023-08-21 21:00] VITALS: BMI 27.4
[2023-08-27 14:57] VITALS: BP 153/72; PULSE 69; RESP 16; TEMP 37.4; O2SAT 96; BMI 27.4
[2023-08-27 15:46] VITALS: BP 179/77; PULSE 70; RESP 16; O2SAT 97
--- NOTE | 2023-08-27 15:54 | ED_ITS ---
HPI - Recheck/Abnormal Lab/Rx General Chief Complaint: Recheck/Abnormal Lab/Rx Stated Complaint: needs infusion sent by PCP Time Seen by Provider: 08/27/23 15:52 Source: patient Mode of arrival: Ambulatory History of Present Illness HPI narrative: 73-year-old female presents for evaluation drainage from her surgical site wound. On 07/19/2023 patient underwent lumbar spinal surgery with at [facility]. Earlier this week patient was evaluated by her neurosurgeon for drainage from her wound, the culture grew out Streptococcus and she was discharged on Keflex. She was seen by her primary care doctor today, who is very concerned that the drainage and referred her to the emergency department for IV antibiotics. Related Data Home Medications Medication Instructions Recorded Confirmed amlodipine 2.5 mg tablet 2.5 mg PO DAILY 10/26/19 06/03/22 meloxicam 15 mg tablet 15 mg PO DAILY 10/26/19 06/03/22 nortriptyline 50 mg capsule 50 mg PO DAILY 10/26/19 06/03/22 Respironics DreamStation 03/26/21 08/21/23 atorvastatin 40 mg tablet 40 mg PO DAILY 03/26/21 06/03/22 gabapentin 300 mg capsule 300 mg PO .4 times daily 03/26/21 06/03/22 lisinopril 30 mg tablet 40 mg PO DAILY 03/26/21 06/03/22 metoprolol succinate 50 mg 50 mg PO DAILY 12/17/21 06/03/22 tablet,extended release 24 hr Previous Rx's Medication Instructions Recorded albuterol sulfate 90 mcg/actuation 2 puff inhalation Q6H PRN 06/03/22 aerosol inhaler shortness of breath or wheezing #6.7 grams benzonatate 100 mg capsule 100 mg PO BID PRN cough #20 caps 06/03/22 inhalational spacing device #1 ea 06/03/22 (Aerochamber MV spacer) clopidogrel 75 mg tablet (Plavix) 75 mg PO DAILY 21 days #21 tabs 08/22/23 Allergies Allergy/AdvReac Type Severity Reaction Status Date / Time Sulfa (Sulfonamide Allergy have Verified 08/27/23 15:00 Antibiotics) been told to avoid it since childhood morphine AdvReac Intermediate ITCHING Verified 08/27/23 15:00 Review of Systems Review of Systems Narrative: See HPI Patient History Social History household members: spouse Smoking Status: Never smoker Smoking Status: Never smoker alcohol intake frequency: a few times a month Substance Use Type: does not use Exam Initial Vital Signs Initial Vital Signs: Vital Signs Temperature 99.3 F 08/27/23 14:57 Pulse Rate 69 08/27/23 14:57 Respiratory Rate 16 08/27/23 14:57 Blood Pressure 153/72 H 08/27/23 14:57 Pulse Oximetry 96 08/27/23 14:57 Oxygen Delivery Method Room Air 08/27/23 14:57 Const: Awake, alert, no acute distress, nontoxic appearing MSK back: No midline tenderness, small pinpoint oozing opening in lumbar back with purulent drainage Skin: Warm, Dry, pinpoint opening in lumbar spine draining purulent material, no surrounding erythema, induration, or fluctuance Neuro: AO x3, CN II-XII grossly intact, moves all extremities Course Orders Ordered: Discontinued Medications Ceftriaxone Sodium 2,000 mg/ (Sodium Chloride) 100 mls @ 200 mls/hr IV NOW ONE Stop: 08/27/23 16:12 Last Infusion: 08/27/23 17:50 Dose: Infused Documented By: Admin: 08/27/23 17:16 Dose: 200 mls/hr Documented By: ZAIRE Vital Signs Vital signs: Vital Signs - 8 hr 08/27/23 14:57 08/27/23 15:46 08/27/23 18:33 Temperature 99.3 F Pulse Rate 69 70 Respiratory Rate 16 16 Blood Pressure 153/72 H 179/77 H 144/67 H Pulse Oximetry 96 97 Oxygen Delivery Method Room Air Room Air MDM - Recheck/Abnormal Lab/Rx Lab Data 08/27/23 16:05 08/27/23 16:05 Labs: Lab Results 08/27/23 Range/Units 16:05 WBC 7.0 (4.5-11.0) X10^3/uL RBC 4.08 (4.0-5.2) X10^6/uL Hgb 12.4 (12.0-16.0) g/dL Hct 36.7 (36-46) % MCV 90.0 (80-100) fL MCH 30.4 (26-34) PG MCHC 33.8 (30-36) % RDW 14.5 (11.6-14.8) % Plt Count 223 (150-400) X10^3/uL Neut % (Auto) 49.6 L (50-75) % Lymph % (Auto) 29.8 (25-40) % Kaufman % (Auto) 19.0 H (3-14) % Eos % (Auto) 1.5 L (2-4) % Baso % (Auto) 0.1 (0-2) % Neut # (Auto) 3500 (4594-2890) /uL Lymph # (Auto) 2100 (3050-9188) /uL Kaufman # (Auto) 1300 H (0-900) /uL Eos # (Auto) 100 (0-450) /uL Baso # (Auto) 0 (0-100) /uL ESR 67 H (0-20) MM/HR Sodium 137 (137-145) mmol/L Potassium 3.7 (3.4-5.1) mmol/L Chloride 101 (98-107) mmol/L Carbon Dioxide 28 (22-32) mmol/L BUN 14 (7-17) mg/dL Creatinine 0.61 (0.52-1.04) mg/dL Estimated GFR > 60 (>60) mL/min BUN/Creatinine Ratio 23.0 H (6-22) Glucose 93 (80-110) mg/dL Calcium 9.0 (8.4-10.2) mg/dL Total Bilirubin 0.5 (0.2-1.3) mg/dL AST 41 H (14-36) IU/L ALT 47 H (<35) IU/L Alkaline Phosphatase 187 H D (38-126) U/L C-Reactive Protein 5.2 H (<1.0) mg/dL Total Protein 7.7 (6.3-8.2) g/dL Albumin 4.4 (3.5-5.0) g/dL Globulin 3.3 (1.7-4.1) g/dL Albumin/Globulin Ratio 1.3 (1.0-2.8) MDM Narrative Medical decision making narrative: Worsening drainage of lumbar back wound. Surgery little over 1 month ago. Sent by PCP for IV antibiotics, apparently infectious Disease believes that this area needs to be drained surgically. We will order labs and we will reach out to patient's spinal surgeon. Dr. Hooker -reviewed laboratory work and patient case. He states that with lack of white blood cell count and lack of symptoms such as high fever there was no hardware underlying the patient's wound and so there is less urgency to take patient to OR for I and D. they have a confirmed culture that should be susceptible to Keflex and she should continue on this medication. Recommend daily dressing changes and follow up in clinic on Wednesday. Patient informed of lab results as well as neurosurgical surgery recommendations. I did recommend that patient follow up on Wednesday with her surgeon, she did receive IV Rocephin tonight, and should continue to take her Keflex as prescribed. ED return precautions discussed at bedside. Discharge Plan Departure Patient Disposition: Home Clinical Impression: Encounter for wound re-check Instructions: How to Care for a Surgical Wound Activity Restrictions/Additional Instructions: Keep your drainage site clean and dry. Continue to take your antibiotics as prescribed. If you start developing high fevers, significant pain or swelling in your surgical site, or have difficulty walking numbness in the legs I would recommend that you go back to [facility] where your initial surgery was performed. Otherwise your neurosurgeon said that he could follow up with you in clinic on Wednesday. Prescriptions: No Action benzonatate 100 mg capsule 100 mg PO BID PRN (Reason: cough) Qty: 20 0RF albuterol sulfate 90 mcg/actuation HFA aerosol inhaler 2 puff inhalation Q6H PRN (Reason: shortness of breath or wheezing) Qty: 6.7 0RF (DME) Aerochamber MV Spacer See Rx Instructions .ROUTE .MEDSUPPLY Qty: 1 0RF Rx Instructions: As directed amlodipine 2.5 mg tablet 2.5 mg PO DAILY meloxicam 15 mg tablet 15 mg PO DAILY nortriptyline 50 mg capsule 50 mg PO DAILY gabapentin 300 mg capsule 300 mg PO .4 times daily lisinopril 30 mg tablet 40 mg PO DAILY metoprolol succinate 50 mg tablet extended release 24 hr 50 mg PO DAILY Patient Comments: TAKE 1 TABLET BY MOUTH ONCE DAILY clopidogrel [Plavix] 75 mg tablet 75 mg PO DAILY 21 Days Qty: 21 0RF atorvastatin 40 mg tablet 40 mg PO DAILY (DME) Respironics DreamStation See Rx Instructions .Route .MEDSUPPLY Rx Instructions: CPAP Min: 8 Max: 14 DME: [facility] Referrals: Lauren Red MD [Primary Care Provider] - Stand Alone Forms: Patient Portal/API
[2023-08-27 16:23] LABS: Add Manual Diff / Slide Review NO; Basophils Absolute Auto 0 /uL (0-100); Basophils Percent Auto 0.1 % (0-2); Eosinophils Absolute Auto 100 /uL (0-450); Eosinophils Percent Auto 1.5 % (2-4); Hematocrit 36.7 % (36-46); Hemoglobin 12.4 g/dL (12.0-16.0); Lymphocytes Absolute Auto 2100 /uL (1100-4500); Lymphocytes Percent Auto 29.8 % (25-40); Mean Corpuscular HGB Conc 33.8 % (30-36); Mean Corpuscular Hemoglobin 30.4 PG (26-34); Monocytes Absolute Auto 1300 /uL (0-900); Neutrophils Absolute Auto 3500 /uL (1500-7000); Neutrophils Percent Auto 49.6 % (50-75); Platelet Count 223 X10^3/uL (150-400); Red Blood Cell Count 4.08 X10^6/uL (4.0-5.2); Red Cell Distribution Width 14.5 % (11.6-14.8)
[2023-08-27 16:35] LABS: C-Reactive Protein Quant 5.2 mg/dL (<1.0)
[2023-08-27 16:42] LABS: Erythrocyte Sedimentation Rate 67 MM/HR (0-20)
[2023-08-27 16:44] LABS: Alanine Aminotransferase 47 IU/L (<35); Albumin 4.4 g/dL (3.5-5.0); Albumin Globulin Ratio 1.3 (1.0-2.8); Alkaline Phosphatase 187 U/L (38-126); Aspartate Aminotransferase 41 IU/L (14-36); Bilirubin Total 0.5 mg/dL (0.2-1.3); Blood Urea Nitrogen 14 mg/dL (7-17); Carbon Dioxide 28 mmol/L (22-32); Chloride 101 mmol/L (98-107); Estimated Glomerular Filt Rate > 60 mL/min (>60); Globulin 3.3 g/dL (1.7-4.1); Glucose 93 mg/dL (80-110); HEMOLYSIS < 15 (0-50); Potassium 3.7 mmol/L (3.4-5.1); Sodium 137 mmol/L (137-145); Total Protein 7.7 g/dL (6.3-8.2)
[2023-08-27] MEDS: cefTRIAXone 2,000 MG in SODIUM CHLORIDE 0.9% 100 ML 200 MG IV (17:16)
[2023-08-27 18:33] VITALS: BP 144/67
[2023-08-27 19:09] VITALS: PULSE 81; RESP 18; O2SAT 95
== END 2023-08-27 19:10 | disposition home or self-care (01) ==
PROVIDERS: Emergency Provider Emergency Medicine; PCP Internal Medicine
DX: Z48.89 Encounter for other specified surgical aftercare (principal)
CPT/HCPCS: 80053; 85025; 85651; 86140; 87040; 96374; 99283; 99284; J0696

== ENCOUNTER → 2025-04-04 13:25 | Outpatient (CLI) | payer MEDICARE, SELFPAY ==
[2023-08-21 21:00] VITALS: BMI 27.4
--- NOTE | 2025-04-04 13:27 | DI.ECHO.S_ITS ---
Version: 1 Study ID: [id number] [place] [address] Name: REBEL NEGRON Study Date: 04/04/2025, 2: 10 PM : 1950 BP: 125 / 82 mmHg Gender: Female Height: 63 in Age: 75 Years Weight: 156 lb BSA: 1.74 mA??? Ordering: ROBERT MONTOYA Referring: ROBERT MONTOYA Clinician: Jerzy Weiss Reason For Study: DSYPNEA ON EXERTION History: Summary Statements Normal sinus rhythm. Normal LV size and wall thickness. Normal wall motion and LV systolic function. Ejection fraction is 60-65%. Stage II diastolic dysfunction. Severe left atrial enlargement; otherwise normal chamber sizes. No significant valve abnormalities. No prior study available for comparison. Procedure: A two-dimensional transthoracic echocardiogram with color flow and Doppler was performed. The study quality was technically good. Comparison is made with the echocardiogram of 08/22/2023. The patient was in normal sinus rhythm during the exam. Left Ventricle: The left ventricle is normal in size. There is normal left ventricular wall thickness. There is no ventricular septal defect visualized. The ejection fraction is estimated to be 60-65%. There are no focal wall motion abnormalities. Grade II diastolic dysfunction with elevated left atrial pressure. Right Ventricle: The right ventricle is normal in size and function. Atria: The left atrium is severely dilated. Right atrial size is normal. There is no Doppler evidence for an interatrial shunt. Mitral Valve: The mitral valve leaflets are mildly calcified. There is mild mitral annular calcification. There is trace mitral regurgitation. Aortic Valve: The aortic valve is trileaflet. The aortic valve opens well. No aortic regurgitation is present. Tricuspid Valve: The tricuspid valve leaflets are thin and pliable. No tricuspid regurgitation. Pulmonic Valve: The pulmonic valve is not well seen, but is grossly normal. There is no pulmonic valvular regurgitation. Great Vessels: The aortic root is mildly dilated. The dimensions of the ascending aorta are normal. The pulmonary artery is normal size. The IVC is of normal diameter and collapses greater than 50% with a sniff. This suggests a low right atrial pressure of 3 mm Hg. Pericardium/ Pleura: There is no pericardial effusion. There is no pleural effusion. 2D and M-Mode Measurements and Calculations LVIDd: 4.8 cm AoV Openin.82 cm LVIDs: 3.2 cm LVOT diam: 2.00 cm IVSd: 1.01 cm Ao root diam: 3.7 cm LVPWd: 0.79 cm asc Aorta Diam: 3.6 cm LV littlejohn. diameter/BSA (cm/m^2): 2.8 Ao Arch Diam (Prox Trans): 1.56 cm LV sys. diameter/BSA (cm/m^2): 1.86 EPSS: 0.49 cm RVD1 (basal): 3.5 cm RVD2 (mid): 3.4 cm TAPSE: 2.50 cm LA A4 area: 22.1 insurance claims supervisor??? IVC diam: 1.59 cm LA A2 area: 25.8 insurance claims supervisor??? RA area: 13.8 insurance claims supervisor??? LA length (vol): 5.7 cm RA long axis: 4.2 cm LA vol: 85.7 ml RA vol: 38.2 ml LA vol index: 49.2 ml/mA??? RA : 21.9 ml/mA??? Doppler Measurements and Calculations Ao V2 max: 129.4 cm/sec LVOT Max Silver: 116.4 cm/sec Ao V2 mean: 94.7 cm/sec LV V1 max P.4 mmHg Ao V2 VTI: 31.4 cm LV V1 VTI: 28.1 cm Ao max P.7 mmHg SV(LVOT): 88.3 ml Ao mean P.9 mmHg STELLA(I,D): 2.8 insurance claims supervisor??? STELLA(V,D): 2.8 insurance claims supervisor??? STELLA indexed to BSA (cm^2/m^2): 1.62 sev ratio: 0.89 MV E max silver: 97.0 cm/sec MV dec time: 0.25 sec MV A max silver: 104.2 cm/sec MV E/A: 0.93 Med Peak E' Silver: 4.0 cm/sec Lat Peak E' Silver: 4.8 cm/sec E/e' average: 22.1 PA V2 max: 87.4 cm/sec PA mean P.69 mmHg Daisy Mast M.D. Electronically signed by: Daisy Mast M.D. 04/05/2025, 4: 39 AM
== END ==
PROVIDERS: PCP Internal Medicine; Referring Provider Internal Medicine; Visit Provider Internal Medicine
DX: I34.81 Nonrheumatic mitral (valve) annulus calcification (principal); I77.810 Thoracic aortic ectasia; R06.09 Other forms of dyspnea
CPT/HCPCS: 93306